=== PATIENT | male | born 1960 | race Caucasian/White ===

== ENCOUNTER 2020-06-15 19:16 | Observation (INO) | payer BC, SELFPAY ==
[2020-06-15 20:00] LABS: Absolute Lymphocytes (CBC) 3.3 K/uL (0.7-4.9); Basophils % 0.8 % (0-1.3); Lymphocytes % 18.6 % (15.3-44.8); MPV 9.6 fL (7.6-11.3); RBC Red Blood Cell Count 5.66 M/uL (4.33-5.43)
[2020-06-15 20:02] LABS: Protime INR 1.07
[2020-06-15] MEDS ORDERED: METOPROLOL TARTRATE 5 MG/5 ML INJ IV ONE (20:02)
[2020-06-15] MEDS ORDERED: AMIODARONE IN DEXTROSE,ISO-OSM 0 MG/0 ML BAG IV ONE (20:02)
[2020-06-15] MEDS ORDERED: AMIODARONE HCL 150 MG/3 ML INJ IV ONE (20:02)
[2020-06-15] MEDS ORDERED: D5W 100 ML IV ONE (20:03)
[2020-06-15 20:25] LABS: ALT/SGPT 32 U/L (12-78); AST/SGOT 17 U/L (15-37); Albumin 3.8 g/dL (3.4-5.0); Alkaline Phosphatase 99 U/L (45-117); BUN Blood Urea Nitrogen 7 mg/dL (7-18); Bicarbonate 29 mmol/L (21-32); Bilirubin Direct 0.1 mg/dL (0-0.2); Bilirubin Total 0.3 mg/dL (0.2-1.0); Glucose Level 163 mg/dL (74-106); Magnesium 2.3 mg/dL (1.8-2.4); NT PRO-BNP 29 pg/mL (<125); Potassium 3.7 mmol/L (3.5-5.1); Protein, Total 8.5 g/dL (6.4-8.2); Sodium Level 141 mmol/L (136-145); Troponin (Emerg Dept Use Only) < 0.02 ng/mL (0.0-0.045)
--- NOTE | 2020-06-15 20:54 | ER ---
Nurse's Notes [facility] Name: Karsten Gibbons Jr Age: 60 yrs Sex: Male : 1960 Arrival Date: 06/15/2020 Time: 19:24 Bed 4 Private MD: Diagnosis: Atrial fibrillation and flutter-with RVR;Chest pain, unspecified Presentation: 06/15 19:09 Chief complaint: EMS states: Pt reports around 5 PM he noticed his chest feeling ea "fluttery" reported the feeling got worse and he called EMS to come check him out. EMS reported pt in Afib with RVR \\T\\ 168, 12.5 Cardizem was given x 2 with relief for a short time. 20 G to right AC initiated per EMS. Coronavirus screen: At this time, the client does not indicate any symptoms associated with coronavirus-19. Ebola Screen: No symptoms or risks identified at this time. Initial Sepsis Screen: Does the patient meet any 2 criteria? HR > 90 bpm. Does the patient have a suspected source of infection? No. Patient's initial sepsis screen is negative. Risk Assessment: Do you want to hurt yourself or someone else? Patient reports no desire to harm self or others. Onset of symptoms was June 15, 2020. 19:09 Method Of Arrival: EMS: [facility] ea 19:09 Acuity: KORY 3 ea Triage Assessment: 19:10 General: Appears uncomfortable, Behavior is appropriate for age. Pain: Denies pain. ea Neuro: Level of Consciousness is awake, alert, obeys commands, Oriented to person, place, time, situation. Cardiovascular: Patient's skin is warm and dry. Rhythm is atrial fibrillation with rapid ventricular response. 19:10 Cardiovascular: Parent/caregiver reports patient has had palpitations. Respiratory: ea Airway is patent Respiratory effort is even, unlabored, Respiratory pattern is regular, symmetrical. Derm: Skin is pink, warm \\T\\ dry. Historical: - Allergies: 19:31 No Known Allergies; ea - Immunization history:: Adult Immunizations up to date. - Social history:: Smoking status: Patient reports the use of cigarette tobacco products, smokes two packs cigarettes per day. Screenin:29 Abuse screen: Denies threats or abuse. Nutritional screening: No deficits noted. ea Tuberculosis screening: No symptoms or risk factors identified. Fall Risk IV access (20 points). Assessment: 20:24 Reassessment: [phone]. ea 21:57 Reassessment: Patient and/or family updated on plan of care and expected duration. Pain ea level reassessed. Patient is alert, oriented x 3, equal unlabored respirations, skin warm/dry/pink. Awaiting on covid results Patient states feeling better. 22:42 Reassessment: Patient and/or family updated on plan of care and expected duration. Pain ea level reassessed. Pt resting with eyes closed, respirations even and unlabored, chest expansions even and symmetrical. Vital Signs: 19:09 BP 140 / 104; Pulse 125; Resp 22; Temp 98.3; Pulse Ox 97% ; ea 19:42 BP 127 / 70; Pulse 134; Resp 20; Pulse Ox 95% ; ea 19:55 BP 127 / 70; Pulse 115; Resp 20; Pulse Ox 95% ; ea 21:03 BP 103 / 86; Pulse 77; Resp 20; Pulse Ox 95% ; ea 23:08 BP 100 / 59; Pulse 66; Resp 19; Temp 98; Pulse Ox 97% on 2 lpm NC; ea ED Course: 19:24 Patient arrived in ED. ea 19:29 Triage completed. ea 19:29 Arm band placed on right wrist. Patient placed in an exam room, on a stretcher, on ea pulse oximetry. 19:29 Patient has correct armband on for positive identification. Bed in low position. Call ea light in reach. Side rails up X2. 19:31 Julien Bourne MD is Attending Physician. 7 19:34 Reinaldo Stafford PA is PHCP. jr8 19:35 Ilana Capellan RN is Primary Nurse. ea 20:08 XRAY Chest (1 view) In Process Unspecified. EDMS 20:53 Carlos Petesren MD is Hospitalizing Provider. jr8 21:17 No provider procedures requiring assistance completed. Patient admitted, IV remains in ea place. Administered Medications: 19:50 Drug: Lopressor 5 mg Route: IVP; Site: right antecubital; ea 20:15 Follow up: Response: No adverse reaction ea 20:56 Drug: Nicoderm CQ 21 mg/24 hr 1 patches Route: Transdermal; Site: affected area; ea 21:00 Drug: Lopressor 25 mg Route: PO; ea 21:17 Follow up: Response: No adverse reaction ea 21:16 Not Given (Other Intervention Used): amiodarone 900 mg, D5W 500 ml IVPB at 1 mg/min ea continuous; for 6 hrs, then change to 0.5 mg/min 21:17 Not Given (Other Intervention Used): amiodarone 150 mg 100 ml IVPB once over 10 mins; ea (mix in D5W) Outcome: 20:54 Decision to Hospitalize by Provider. chalo 21:17 Instructed on the need for admit, Demonstrated understanding of instructions. ea 23:07 Admitted to Med/surg accompanied by tech, room 214, with chart, Report called to ea Receiving nurse on second floor 23:07 Condition: stable 23:09 Patient left the ED. ea Signatures: Dispatcher [employer] EDMS Reinaldo Stafford PA PA jrIlana Alonso, RN RN Julien Arevalo MD MD mh7
--- NOTE | 2020-06-15 20:55 | EDPHYS ---
Physician Documentation [facility] Name: Karsten Gibbons Jr Age: 60 yrs Sex: Male : 1960 Arrival Date: 06/15/2020 Time: 19:24 Bed 4 Private MD: ED Physician Julien Bourne HPI: 06/15 20:47 This 60 yrs old Male presents to ER via EMS with complaints of palpitations. jr8 20:47 The patient presents with a history of irregular heart beat, heart racing. Context: The jr8 symptoms occur at rest. Onset: The symptoms/episode began/occurred acutely, today. Duration: The patient or guardian reports a single episode, that is still ongoing, and unchanged. Modifying factors: The symptoms are aggravated by light activity. Associated signs and symptoms: Pertinent positives: chest pain, SOB. Severity of symptoms: At their worst the symptoms were moderate in the emergency department the symptoms are unchanged. It is unknown whether or not the patient has had similar symptoms in the past. The patient has not recently seen a physician. Historical: - Allergies: 19:31 No Known Allergies; ea - Immunization history:: Adult Immunizations up to date. - Social history:: Smoking status: Patient reports the use of cigarette tobacco products, smokes two packs cigarettes per day. ROS: 20:47 Eyes: Negative for injury, pain, redness, and discharge, ENT: Negative for injury, jr8 pain, and discharge, Neck: Negative for injury, pain, and swelling, Abdomen/GI: Negative for abdominal pain, nausea, vomiting, diarrhea, and constipation, Back: Negative for injury and pain, MS/Extremity: Negative for injury and deformity, Skin: Negative for injury, rash, and discoloration, Neuro: Negative for headache, weakness, numbness, tingling, and seizure. 20:47 Cardiovascular: Positive for chest pain, palpitations. 20:47 Respiratory: Positive for shortness of breath. Exam: 20:47 Eyes: Pupils equal round and reactive to light, extra-ocular motions intact. Lids and jr8 lashes normal. Conjunctiva and sclera are non-icteric and not injected. Cornea within normal limits. Periorbital areas with no swelling, redness, or edema. ENT: Nares patent. No nasal discharge, no septal abnormalities noted. Tympanic membranes are normal and external auditory canals are clear. Oropharynx with no redness, swelling, or masses, exudates, or evidence of obstruction, uvula midline. Mucous membranes moist. Neck: Trachea midline, no thyromegaly or masses palpated, and no cervical lymphadenopathy. Supple, full range of motion without nuchal rigidity, or vertebral point tenderness. No Meningismus. Respiratory: Lungs have equal breath sounds bilaterally, clear to auscultation and percussion. No rales, rhonchi or wheezes noted. No increased work of breathing, no retractions or nasal flaring. Abdomen/GI: Soft, non-tender, with normal bowel sounds. No distension or tympany. No guarding or rebound. No evidence of tenderness throughout. Back: No spinal tenderness. No costovertebral tenderness. Full range of motion. Skin: Warm, dry with normal turgor. Normal color with no rashes, no lesions, and no evidence of cellulitis. MS/ Extremity: Pulses equal, no cyanosis. Neurovascular intact. Full, normal range of motion. Neuro: Awake and alert, GCS 15, oriented to person, place, time, and situation. Cranial nerves II-XII grossly intact. Motor strength 5/5 in all extremities. Sensory grossly intact. Cerebellar exam normal. Normal gait. 20:47 Cardiovascular: Rate: tachycardic, Rhythm: irregularly irregular, Pulses: Pulses are 2+ in right radial artery and left radial artery. Heart sounds: normal, normal S1and S2, no S3 or S4, no murmur, no rub, no gallop, Edema: is not appreciated. 20:47 ECG was reviewed by the Attending Physician. Vital Signs: 19:09 BP 140 / 104; Pulse 125; Resp 22; Temp 98.3; Pulse Ox 97% ; ea 19:42 BP 127 / 70; Pulse 134; Resp 20; Pulse Ox 95% ; ea 19:55 BP 127 / 70; Pulse 115; Resp 20; Pulse Ox 95% ; ea 21:03 BP 103 / 86; Pulse 77; Resp 20; Pulse Ox 95% ; ea 23:08 BP 100 / 59; Pulse 66; Resp 19; Temp 98; Pulse Ox 97% on 2 lpm NC; ea MDM: 19:34 Patient medically screened. [facility] 20:51 Data reviewed: vital signs, nurses notes, lab test result(s), EKG, radiologic studies, jr8 plain films. Data interpreted: Pulse oximetry: on room air is 95 %. Interpretation: normal. Counseling: I had a detailed discussion with the patient and/or guardian regarding: the historical points, exam findings, and any diagnostic results supporting the discharge/admit diagnosis, lab results, radiology results, the need for further work-up and treatment in the hospital. 06/15 19:34 Order name: Basic Metabolic Panel; Complete Time: 20:46 06/15 19:34 Order name: CBC with Diff; Complete Time: 20:10 06/15 19:34 Order name: LFT's; Complete Time: 20:46 06/15 19:34 Order name: Magnesium; Complete Time: 20:46 [facility] 06/15 19:34 Order name: NT PRO-BNP; Complete Time: 20:46 06/15 19:34 Order name: PT-INR; Complete Time: 20:10 06/15 19:34 Order name: Troponin (emerg Dept Use Only); Complete Time: 20:46 [facility] 06/15 19:34 Order name: XRAY Chest (1 view) [facility] 06/15 21:28 Order name: COVID-19 ea 06/15 21:29 Order name: [facility] 06/15 22:51 Order name: SARS-COV-2 RT PCR [facility] 06/15 19:34 Order name: EKG; Complete Time: 19:35 06/15 19:34 Order name: Cardiac monitoring; Complete Time: 19:36 [facility] 06/15 19:34 Order name: EKG - Nurse/Tech; Complete Time: 19:36 06/15 19:34 Order name: IV Saline Lock; Complete Time: 19:36 06/15 19:34 Order name: Labs collected and sent; Complete Time: 20:40 [facility] 06/15 19:34 Order name: O2 Per Protocol; Complete Time: 19:45 06/15 19:34 Order name: O2 Sat Monitoring; Complete Time: 19:46 EC:47 Rate is 116 beats/min. Rhythm is irregularly irregular, A fib. QRS Lamar is Normal. QRS jr8 interval is normal at 82 msec. QT interval is normal at 320 msec. No Q waves. T waves are Normal. No ST changes noted. Clinical impression: Atrial Fibrillation. Interpreted by me. Reviewed by me. Administered Medications: 19:50 Drug: Lopressor 5 mg Route: IVP; Site: right antecubital; ea 20:15 Follow up: Response: No adverse reaction ea 20:56 Drug: Nicoderm CQ 21 mg/24 hr 1 patches Route: Transdermal; Site: affected area; ea 21:00 Drug: Lopressor 25 mg Route: PO; ea 21:17 Follow up: Response: No adverse reaction ea 21:16 Not Given (Other Intervention Used): amiodarone 900 mg, D5W 500 ml IVPB at 1 mg/min ea continuous; for 6 hrs, then change to 0.5 mg/min 21:17 Not Given (Other Intervention Used): amiodarone 150 mg 100 ml IVPB once over 10 mins; ea (mix in D5W) Disposition: 06/16 06:05 Co-signature as Attending Physician, Julien Bourne MD. mh7 Disposition: 06/15/20 20:54 Hospitalization ordered by Carlos Petersen for Observation. Preliminary diagnosis are Atrial fibrillation and flutter - with RVR, Chest pain, unspecified. - Bed requested for Telemetry/MedSurg (observation). - Status is Observation. ea - Condition is Stable. - Problem is new. - Symptoms have improved. Signatures: Dispatcher [employer] EDMS Reinaldo Stafford PA PA jr8 Terrance Holley, [employer]ER-C [employer] OFFICER-Cla1 Kathy Earl RN RN cg Antunez, Elena, RN RN ea Holmes, Maurice, MD MD 7 Corrections: (The following items were deleted from the chart) 06/15 21:48 20:54 Hospitalization Ordered by Carlos Petersen MD for Observation. Preliminary cg diagnosis is Atrial fibrillation and flutter - with RVR; Chest pain, unspecified. Bed requested for Telemetry/MedSurg (observation). Status is Observation. Condition is Stable. Problem is new. Symptoms have improved. jr8 23:09 21:48 06/15/2020 20:54 Hospitalization Ordered by Carlos Petersen MD for Observation. ea Preliminary diagnosis is Atrial fibrillation and flutter - with RVR; Chest pain, unspecified. Bed requested for Telemetry/MedSurg (observation). Status is Observation. Condition is Stable. Problem is new. Symptoms have improved. cg
--- NOTE | 2020-06-15 21:00 | RAD REPORT ---
EXAM DESCRIPTION: RAD - Chest Single View - 06/15/2020 8:08 pm CLINICAL HISTORY: CHEST PAIN COMPARISON: Two view chest October 2013 TECHNIQUE: AP portable chest image was obtained 06/15/2020 8:08 pm . FINDINGS: No focal lung parenchymal process. Interstitial pattern is not substantially different whe n adjusting for AP technique and slightly more shallow inspiratory effort. Heart size is upper normal . Upper lobe vasculature is mildly prominent. No measurable pleural effusion and no pneumothorax. No acute bony abnormality seen. No acute aortic findings suspected. IMPRESSION: No peripheral mass or consolidation. Heart, vasculature and lung markings are all slightly prominent believed to be technique and inspirat ion related rather than mild failure or volume overload.
[2020-06-15] MEDS ORDERED: NICOTINE 21 MG/PAT TD ONE (21:08)
[2020-06-15] MEDS ORDERED: METOPROLOL TAR 25 MG TAB ONE (21:13)
--- NOTE | 2020-06-15 22:46 | P.HP ---
Certification for Inpatient Patient admitted to: Observation With expected LOS: <2 Midnights Patient will require the following post-hospital care: None Practitioner: I am a practitioner with admitting privileges, knowledge of patient current condition, hospital course, and medical plan of care. Services: Services provided to patient in accordance with Admission requirements found in Title 42 Section 412.3 of the Code of Federal Regulations Patient History Date of Service: 06/15/20 Primary Care Provider: Dr. Nelson Reason for admission: AFib RVR History of Present Illness: 60-year-old male with history of atrial fibrillation on chronic anticoagulation therapy, COPD, tobacco abuse, hypertension presents to the em ergency department for palpitations. Patient reports that he was at home when he began to feel palpitations, checked his Smart watch noted that his heart rate was in the 160s. Patient reports feeling flushed throughout, called EMS who identified that he was in atrial fibrillation with rapid ventricular response, EMS administer 12.5 mg of Cardizem IV push. Upon arrival to the emergency department patient was still tachycardic with a rate around 130-140, received metoprolol 5 mg IV push, rate began to slow and during his stay in the emergency department he converted to normal sinus rhythm with a rate of around 70. Labs significant for elevated white blood cell count 17.5 glucose 163 patient is not known diabetic. Patient denies any chest pain at this time will admit for further evaluation and management. 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 - Family History Family History: Reviewed- Non-Contributory - Social History Smoking Status: Heavy Tobacco smoker (>10 cigarettes/day) Counseled patient to stop smoking for: less than 10 minutes Smoking therapy provided: Yes Alcohol use: Yes CD- Drugs: No Caffeine use: Yes Place of Residence: Home Review of Systems 10-point ROS is otherwise unremarkable Cardiovascular: Palpitations, Light Headedness, As per HPI Physical Examination - Physical Exam General: Alert, In no apparent distress HEENT: Atraumatic, PERRLA, Mucous membr. moist/pink Neck: Supple, 2+ carotid pulse no bruit, No LAD Respiratory: Clear to auscultation bilaterally, Normal air movement Cardiovascular: Regular rate/rhythm, Normal S1 S2, No gallops, No rubs, No murmurs Capillary refill: <2 Seconds Gastrointestinal: Normal bowel sounds, No tenderness Musculoskeletal: No tenderness Integumentary: No rashes Neurological: Normal speech, Normal strength at 5/5 x4 extr, Normal tone, Normal affect - Studies Laboratory Data (last 24 hrs) 06/15/20 19:30: PT 12.6 H, INR 1.07 06/15/20 19:30: WBC 17.5 H, Hgb 17.2, Hct 51.0 H, Plt Count 219 06/15/20 19:30: Sodium 141, Potassium 3.7, BUN 7, Creatinine 1.01, Glucose 163 H, Magnesium 2.3, Total Bilirubin 0.3, AST 17, ALT 32, Alkaline Phosphatase 99 Assessment and Plan - Plan Assessment Atrial fibrillation rapid ventricular response on chronic anticoagulation-now resolved in sinus rhythm Hypertension Hyperlipidemia Leukocytosis COPD Tobacco abuse Plan Atrial fibrillation rapid ventricular response on chronic anticoagulation-now resolved in sinus rhythm: Patient was given Cardizem by EMS, metoprolol in the emergency department during his stay in the emergency department converted to sinus rhythm rate of around 70-80. Patient takes metoprolol succinate 25 mg p.o. daily at home, increased to metoprolol succinate 50 mg p.o. daily, cardiology consulted monitor on telemetry. Continue Eliquis for DVT prophylaxis Hypertension: Continue metoprolol, other home medications as appropriate. Hyperlipidemia: Substitute to atorvastatin for pravastatin Leukocytosis: Patient without any systemic signs of infection, fever, complaints. Will repeat CBC with morning labs. COPD: Provide patient with p.r.n. inhaler. Tobacco abuse: Provided with nicotine patch, address cessation. Discharge Plan: Home Plan to discharge in: 24 Hours - Advance Directives Does patient have a Living Will: No Does patient have a Durable POA for Healthcare: No - Code Status/Comfort Care Code Status Assessed: Yes (Full code) Critical Care: No Time Spent Managing Pts Care (In Minutes): 55
[2020-06-15 23:17] VITALS: O2SAT 97
[2020-06-15] MEDS ORDERED: ALPRAZOLAM 0.5 MG TABLET PO PRN (23:18)
[2020-06-15] MEDS ORDERED: ONDANSETRON 4 MG/2 ML VIAL IV PRN (23:18)
[2020-06-15] MEDS ORDERED: ACETAMINOPHEN 500 MG TAB PO PRN (23:18)
[2020-06-15] MEDS ORDERED: NA CHLORIDE 0.9% 1,000 ML IV SCH (23:18)
[2020-06-15] MEDS ORDERED: ALBUTEROL INHALER 60 PUFF/8 GM IH PRN (23:18)
[2020-06-15 23:40] VITALS: BMI 29.3
[2020-06-16 05:56] LABS: Absolute Lymphocytes (CBC) 3.4 K/uL (0.7-4.9); Basophils % 0.9 % (0-1.3); Hematocrit 47.6 % (39.6-49.0); Lymphocytes % 30.3 % (15.3-44.8); MPV 9.4 fL (7.6-11.3); RBC Red Blood Cell Count 5.23 M/uL (4.33-5.43)
[2020-06-16] MEDS ORDERED: METOPROLOL XL 50 MG TAB PO SCH (06:00)
[2020-06-16 06:19] LABS: BUN Blood Urea Nitrogen 7 mg/dL (7-18); Bicarbonate 26 mmol/L (21-32); Glucose Level 103 mg/dL (74-106); Magnesium 2.2 mg/dL (1.8-2.4); Sodium Level 141 mmol/L (136-145); Thyroid Stimulating Hormone 0.933 uIU/mL (0.360-3.740); Troponin I < 0.02 ng/mL (0.0-0.045)
--- NOTE | 2020-06-16 08:02 | P.PN ---
Subjective Date of Service: 06/16/20 Primary Care Provider: Dr. Nelson Chief Complaint: AFib RVR Subjective: No new changes, No C/O voiced Physical Examination - Vital Signs Temperature: 97.9 F Blood Pressure: 142/67 Pulse: 61 Respirations: 18 Pulse Ox (%): 96 - Physical Exam General: Alert, In no apparent distress, Oriented x3 HEENT: Atraumatic, Normocephalic Neck: Supple, 2+ carotid pulse no bruit Respiratory: Clear to auscultation bilaterally, Normal air movement Cardiovascular: No edema, Regular rate/rhythm, Normal S1 S2 Gastrointestinal: Normal bowel sounds, Soft and benign, Non-distended Musculoskeletal: No clubbing, No contractures Neurological: Normal speech, Normal strength at 5/5 x4 extr, Normal tone - Studies Laboratory Data (last 24 hrs) 06/15/20 19:30: PT 12.6 H, INR 1.07 06/15/20 19:30: WBC 17.5 H, Hgb 17.2, Hct 51.0 H, Plt Count 219 06/15/20 19:30: Sodium 141, Potassium 3.7, BUN 7, Creatinine 1.01, Glucose 163 H, Magnesium 2.3, Total Bilirubin 0.3, AST 17, ALT 32, Alkaline Phosphatase 99 Assessment & Plan Physician Review Additional Text: Atrial fib with RVR -improved chronic anticoagulation COPD -progressive HTN sleep apnea- on nocturnal home 02 PLAN -continue tobacco cessation -start nicotine patch -continue increase Toprol - obtain 02 post exertion , if low , may need to arrnage for portable jhome 02 - COPD with exertional hypxia may be driving rcardiac arrythmias -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
[2020-06-16] MEDS ORDERED: APIXABAN 5 MG TABLET PO SCH (09:00)
[2020-06-16] MEDS ORDERED: NICOTINE 21 MG/PAT TD SCH (09:00)
--- NOTE | 2020-06-16 13:11 | CON ---
Date of Consultation: 06/16/2020 Reason For Consultation: Atrial fibrillation with rapid ventricular response. History Of Present Illness: This 60-year-old male with history of atrial fibrillation, paroxysmal, o n Eliquis and metoprolol-XL 25 mg twice a day; COPD; active smoker; history of remote alcohol abuse, clean for 15 years, who comes in with sudden onset of palpitations. Heart rate was in the 140s. Upo n arrival, he was given some Cardizem and metoprolol IV and he converted to sinus rhythm and has been in sinus rhythm since last night. He claimed that he had an overnight sleep study done and did not have sleep apnea. He feels well. Does not have any chest pain at the present time, but he does have dyspnea on exertion. Past Medical History: As outlined above in HPI. Medications: Refer to reconciliation sheet for detailed list. Allergies: NO KNOWN DRUG ALLERGIES. Family History: Coronary artery disease in father's side. No history of premature coronary artery d isease. Social History: He is an active smoker, 1 pack per day. Does not drink at the present time. Does n ot use any drugs. Review of Systems: All systems reviewed and they were negative except for mentioned in the HPI. Physical Examination: Vital Signs: Temperature is 97.7, pulse 59, breathing at 18, blood pressure is 134/59, saturating 94 %. General: Pleasant middle-aged male, in no apparent distress. Overweight. Head and Neck: Pupils are equal, reactive to light. Intact eye movements. No JVD. No cervical lym phadenopathy. Neck: Supple. Thyroid is not enlarged. Lungs: Clear to auscultation bilaterally. No rhonchi, rales, or crackles. No accessory muscle use. Heart: Regular rate and rhythm. No extra sounds. Abdomen: Soft, nontender. Bowel sounds positive. No organomegaly. No masses or hernia. No rigidi ty or rebound. Extremities: No edema, clubbing, or cyanosis. Intact pulses. Skin: No rashes. Neurologic: Alert, awake, oriented x3. No acute focal deficits appreciated. Investigations: Troponin less than 0.02. TSH is 0.9, creatinine is 0.85, potassium is 4, hemoglobin is 15.5, white blood cell count is 4.5, and platelets are 196. Assessment And Recommendations: Atrial fibrillation with rapid ventricular response. This is a paro xysmal atrial fibrillation converted to sinus on metoprolol alone. I recommend to increase metoprolo l-XL to 50 mg twice a day. Continue Eliquis 5 mg twice daily and the patient has been in sinus since last night. From Cardiology standpoint, the patient can be discharged and plan to follow up with jocelyne cardenas in 1 to 2 weeks. If more episodes of atrial fibrillation happened, then we will consider antiarrhy thmic management with sotalol. Shortness of breath and dyspnea on exertion. The patient is an active smoker with COPD, however, car diac origin is a possibility. We will plan for outpatient evaluation and possible left and right hea rt catheterization to further evaluate the etiology of his shortness of breath and manage it accordaleksey booth. Thank you for the consult. /YASH Voice ID: [id number] Report ID: [id number]
--- NOTE | 2020-06-16 15:06 | P.DS ---
Admission Date: 06/15/20 Discharge Date: 06/16/20 Primary Care Provider: Dr. Nelson Disposition: ROUTINE DISCHARGE Discharge Condition: FAIR Reason for Admission: AFib RVR Brief History of Present Illness: History of Present Illness: 60-year-old male with history of atrial fibrillation on chronic anticoagulation therapy, COPD, tobacco abuse, [facility]. Patient reports that he was at home when he began to feel palpitations, checked his Smart watch noted that his heart rate was in the 160s. Patient reports feeling flushed throughout, called EMS who identified that he was in atrial fibrillation with rapid ventricular response, EMS administer 12.5 mg of Cardizem IV push. Upon arrival to the emergency department patient was still tachycardic with a rate around 130-140, received metoprolol 5 mg IV push, rate began to slow and during his stay in the emergency department he converted to normal sinus rhythm with a rate of around 70. Labs significant for elevated white blood cell count 17.5 glucose 163 patient is not known diabetic. Patient denies any chest pain at this time will admit for further evaluation and management. Allergies No Known Allergies Allergy (Verified 05/22/17 07:54) Home Medications: Albuterol Sulfate [Proair Hfa] 8.5 gm IH PRN PRN 12/22/16 Duloxetine HCl 30 mg PO DAILY 12/22/16 Pravastatin Sodium 40 mg PO DAILY 12/22/16 Telmisartan [Micardis] 40 mg PO DAILY AFTER SUPPER 12/22/16 Verapamil HCl [Calan] 80 mg PO TID 12/22/16 Hospital Course: 60-year-old male past medical history of hypertension, atrial fibrillation on chronic anticoagulation with Eliquis admitted because of r eported elevated heart rate at home to 150s on this washer. On arrival in the ED by EMS he was in AFib with RVR up to 140s. Patient was given Cardizem in the ED. His heart rate improved and the converted to sinus reading. He remained in sinus reading now. His medication has been switched to Toprol. He was evaluated by Cardiology and recommended can be discharged home. If recurrent AFib symptoms patient might need medical cardioversion with sotalol. 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 Finney at [facility] and he will make appointment to see them for outpatient EP study . Of note patient has a history of COPD, still actively smoker, smoking cessation advised. He was treated with nicotine patch while inpatient. Patient reported some dyspnea on exertion. His chest examination was unremarkable. There was no documented dyspnea with exertion during hospitalization. Vital Signs/Physical Exam: Temp Pulse Resp BP Pulse Ox 97.7 F 68 20 122/66 94 06/16/20 12:00 06/16/20 12:00 06/16/20 12:00 06/16/20 12:00 06/16/20 12:00 General: In no apparent distress, Oriented x3 HEENT: Atraumatic, Normocephalic, PERRLA Neck: Supple, 2+ carotid pulse no bruit, JVD not distended Respiratory: Clear to auscultation bilaterally, Normal air movement Cardiovascular: Normal pulses, Regular rate/rhythm, Normal S1 S2 Gastrointestinal: Normal bowel sounds, Hypoactive, Soft and benign, Non- distended Musculoskeletal: No clubbing, No swelling Integumentary: No rashes, No breakdown Neurological: Normal speech, Normal strength at 5/5 x4 extr, Normal tone Laboratory Data at Discharge: WBC 11.2 K/uL (4.3-10.9) H D 06/16/20 05:18 Hgb 15.5 g/dL (13.6-17.9) 06/16/20 05:18 Hct 47.6 % (39.6-49.0) 06/16/20 05:18 Plt Count 196 K/uL (152-406) 06/16/20 05:18 PT 12.6 SECONDS (9.5-12.5) H 06/15/20 19:30 INR 1.07 06/15/20 19:30 Sodium 141 mmol/L (136-145) 06/16/20 05:18 Potassium 4.0 mmol/L (3.5-5.1) 06/16/20 05:18 BUN 7 mg/dL (7-18) 06/16/20 05:18 Creatinine 0.85 mg/dL (0.55-1.3) 06/16/20 05:18 Glucose 103 mg/dL (74-106) 06/16/20 05:18 Magnesium 2.2 mg/dL (1.8-2.4) 06/16/20 05:18 Total Bilirubin 0.3 mg/dL (0.2-1.0) 06/15/20 19:30 AST 17 U/L (15-37) 06/15/20 19:30 ALT 32 U/L (12-78) 06/15/20 19:30 Alkaline Phosphatase 99 U/L (45-117) 06/15/20 19:30 Troponin I < 0.02 ng/mL (0.0-0.045) 06/16/20 05:18 Home Medications: Albuterol Sulfate [Proair Hfa] 8.5 gm IH PRN PRN 12/22/16 Duloxetine HCl 30 mg PO DAILY 12/22/16 Pravastatin Sodium 40 mg PO DAILY 12/22/16 Telmisartan [Micardis] 40 mg PO DAILY AFTER SUPPER 12/22/16 Apixaban [Eliquis] 5 mg PO BID 06/15/20 Metoprolol Succinate [Toprol Xl*] 50 mg PO DAILY #30 tab 06/16/20 New Medications: Metoprolol Succinate [Toprol Xl*] 50 mg PO DAILY #30 tab Diet: Low sodium Activity: [place] Followup: Norberto Galvez MD [ACTIVE - CAN ADMIT] -
[2020-06-16 18:28] VITALS: BP 137/65; TEMP 97.6
[2020-06-16] MEDS ORDERED: ATORVASTATIN 10 MG TAB PO SCH (21:00)
== END 2020-06-16 18:34 | disposition home or self-care (01) ==
LOC: ER 19:16 → ERHOLD 21:34 → 2ND 23:05
PROVIDERS: ADMIT Internal Medicine; ATTEND Internal Medicine
DX: I48.0 Paroxysmal atrial fibrillation (principal); J44.9 Chronic obstructive pulmonary disease, unspecified; R06.02 Shortness of breath; I10 Essential (primary) hypertension; E78.5 Hyperlipidemia, unspecified; D72.829 Elevated white blood cell count, unspecified; F41.9 Anxiety disorder, unspecified; R07.9 Chest pain, unspecified; G47.30 Sleep apnea, unspecified; F10.11 Alcohol abuse, in remission; F17.210 Nicotine dependence, cigarettes, uncomplicated; Z71.6 Tobacco abuse counseling; Z79.01 Long term (current) use of anticoagulants; Z99.81 Dependence on supplemental oxygen; Z20.822 Contact with and (suspected) exposure to COVID-19; Z82.49 Family history of ischemic heart disease and other diseases of the circulatory system
CPT/HCPCS: 36415; 71045; 80048; 80076; 83036; 83735; 83880; 84439; 84443; 84484; 85025; 85610; 93005; 96374; 99285; G0378; J0282; J7030; U0003